=== PATIENT | female | born 1970 ===

== ENCOUNTER 2019-01-11 11:42 | Emergency (ER) | payer MEDICAID, OTHER, SELFPAY ==
[~2019-01-11] VITALS: Ht 157.5 cm; Wt 129.0 kg
--- NOTE | 2019-01-11 11:55 | NUR ---
URINE COLLECTION CUP PROVIDED TO PT. PT AMBULATED TO RESTROOM WITH A STEADY GAIT. Addendum: 01/11/19 at 1353 by MAURO ERMD AT BEDSIDE GOING OVER POC.
--- NOTE | 2019-01-11 12:02 | NUR ---
PT PRESENTED TO ED D/T URGENCY, FREQUENCY, AND "ITCHINESS." PT STATES "I WAKE UP IN THE MIDDLE OF THE NIGHT AND FEEL THINGS CRAWLING DOWN THERE." PT DENIES SEXUAL RELATIONSHIPS. STATES STARTED AZO YESTERDAY FOR THE "BURNING."
--- NOTE | 2019-01-11 12:13 | NUR ---
[facility] BY [facility] TO PROVIDE PT WITH WATER.
[2019-01-11 12:39] LABS: MICROSCOPIC INDICATED
[2019-01-11 12:40] LABS: CULTURE INDICATED? YES
[2019-01-11 12:49] LABS: O2 FLOW ROOM AIR L/min; PH, VENOUS 7.378 pH (7.320-7.420)
[2019-01-11 12:55] LABS: BASOPHILS # (AUTO) 0.01 x10^3/uL (0-0.1); BASOPHILS % (AUTO) 0 % (0-1); EOSINOPHILS # (AUTO) 0.09 x10^3/uL (0-0.4); EOSINOPHILS % (AUTO) 2 % (1-7); LYMPHOCYTES # (AUTO) 1.71 x10^3/uL (1-3.4); LYMPHOCYTES % (AUTO) 39 % (22-44); MD NO; MEAN CORPUSCULAR HEMOGLOBIN 29.9 pg (27.0-34.8); MEAN CORPUSCULAR HGB CONC 34.3 g/dL (32.4-35.8); MEAN CORPUSCULAR VOLUME 87.4 fL (80-100); MEAN PLATELET VOLUME 10.2 fL (7.4-10.4); MONOCYTES % (AUTO) 5 % (2-9); NEUTROPHILS # (AUTO) 2.37 x10^3/uL (1.8-6.8); NEUTROPHILS % (AUTO) 54 % (42-75); PLATELET COUNT 173 x10^3/uL (130-400); RED CELL DISTRIBUTION WIDTH 15.3 % (9.6-15.2)
[2019-01-11 13:01] LABS: ACETONE, SERUM Negative (Negative)
[2019-01-11 13:02] LABS: ALANINE AMINOTRANSFERASE 148 U/L (12-78); ALBUMIN 3.3 g/dL (3.4-5.0); ANION GAP 10 mmol/L (5-15); CALCIUM 9.2 mg/dL (8.5-10.1); CHLORIDE 102 mmol/L (98-107); CREATININE 0.93 mg/dL (0.55-1.02)
[2019-01-11 13:05] LABS: ALKALINE PHOSPHATASE 166 U/L (45-117); BILIRUBIN,TOTAL 0.8 mg/dL (0.2-1.0); TOTAL PROTEIN 8.4 g/dL (6.4-8.2)
--- NOTE | 2019-01-11 13:10 | NUR ---
REPORT TO LANI BANUELOS.
[2019-01-11 13:53] VITALS: BP 125/75
[2019-01-11] MEDS ORDERED: FLUCONAZOLE 100 MG TABLET ONE (14:47)
[2019-01-11] MEDS ORDERED: FLUCONAZOLE 100 MG TABLET PO ONE (15:00)
--- NOTE | 2019-01-11 15:01 | NUR ---
PT DISCHARGED HOME IN A STABLE CONDITION. DC INSTRUCTIONS WERE DISCUSSED WITH PT. PT VERBALIZED UNDERSTANDING. NO FURTHER QUESTIONS OR CONCERNS WERE EXPRESSED AT THAT TIME. PT AMBULATED WITH RN TO DC DESK. STEADY GAIT.
== END 2019-01-11 15:02 | disposition home or self-care (01) ==
LOC: ED 14:34
DX: B37.3 Candidiasis of vulva and vagina (principal); N30.00 Acute cystitis without hematuria; E11.65 Type 2 diabetes mellitus with hyperglycemia; R74.0 Nonspecific elevation of levels of transaminase and lactic acid dehydrogenase [LDH]
CPT/HCPCS: 36415; 76700; 80053; 81001; 82010; 82803; 83690; 85025; 87077; 87086; 87186; 99284